=== PATIENT | male | born 1995 | race African-American/Black ===

== ENCOUNTER 2018-08-15 19:18 | Emergency (ER) | payer OTHER ==
[~2018-08-15] VITALS: Ht 167.6 cm; Wt 54.0 kg
[2018-08-15 19:57] VITALS: BP 119/81
== END 2018-08-15 21:29 | disposition left against medical advice (07) ==
LOC: ER 19:18
DX: H93.90 Unspecified disorder of ear, unspecified ear (principal); Z53.21 Procedure and treatment not carried out due to patient leaving prior to being seen by health care provider

== ENCOUNTER 2018-08-16 01:45 | Emergency (ER) | payer OTHER ==
[~2018-08-16] VITALS: Ht 167.6 cm; Wt 55.0 kg
[2018-08-16 04:13] VITALS: BP 108/70
== END 2018-08-16 04:24 | disposition home or self-care (01) ==
LOC: ER 01:45
DX: H61.23 Impacted cerumen, bilateral (principal)
CPT/HCPCS: 69209; 99282